=== PATIENT | female | born 1965 | race Caucasian/White ===

== ENCOUNTER 2019-06-05 12:33 | Emergency (ER) | payer MEDICAID ==
[~2019-06-05] VITALS: Ht 170.2 cm; Wt 131.8 kg
--- NOTE | 2019-06-05 13:39 | NUR ---
PT TO XRAY
[2019-06-05] MEDS ORDERED: ALBU8HFA PO (13:59)
[2019-06-05] MEDS ORDERED: LEVO750T21 PO (13:59)
[2019-06-05 14:08] VITALS: BP 126/80
== END 2019-06-05 14:28 | disposition home or self-care (01) ==
LOC: ER 12:34
DX: J18.9 Pneumonia, unspecified organism (principal); F17.200 Nicotine dependence, unspecified, uncomplicated; Z79.2 Long term (current) use of antibiotics
CPT/HCPCS: 71045; 99283

== ENCOUNTER 2019-06-11 12:59 | Emergency (ER) | payer MEDICAID ==
[~2019-06-11] VITALS: Ht 170.2 cm; Wt 143.0 kg
[~2019-06-11 12:59] MED LIST: ALBU8HFA PO; LEVO750T21 PO
[2019-06-11 13:08] VITALS: BP 145/86
--- NOTE | 2019-06-11 13:47 | NUR ---
PT AMBULATORY TO XRAY WITH UNDERWRITING SUPPORT SPECIALIST PER ORDERS NOW
[2019-06-11 13:50] LABS: BASOPHILS # (AUTO) 0.1 X10'3 (0-0.2); BASOPHILS % (AUTO) 0.8 % (0-1); EOSINOPHILS # (AUTO) 0.1 X10'3 (0-0.9); EOSINOPHILS % (AUTO) 1.3 % (0-6); LYMPHOCYTES # (AUTO) 3.4 X10'3 (1.1-4.8); LYMPHOCYTES % (AUTO) 35.1 % (21-51); MEAN CORPUSCULAR HEMOGLOBIN 25.1 PG (27.0-31.0); MEAN CORPUSCULAR HGB CONC 32.4 g/dL (33.0-36.5); MEAN CORPUSCULAR VOLUME 77.4 FL (78-98); MEAN PLATELET VOLUME 7.1 FL (7.4-10.4); MONOCYTES # (AUTO) 0.8 X10'3 (0-0.9); MONOCYTES % (AUTO) 8.2 % (2-12); NEUTROPHILS # (AUTO) 5.3 X10'3 (1.8-7.7); NEUTROPHILS % (AUTO) 54.6 % (42-75); PLATELET COUNT 353 X10'3 (140-440); RED BLOOD COUNT 5.16 X10'6 (4.20-5.60); RED CELL DISTRIBUTION WIDTH 16.1 % (11.5-14.5); WHITE BLOOD COUNT 9.7 X10'3 (4.5-11.0)
[2019-06-11] MEDS ORDERED: CODE10LI PO (13:54)
[2019-06-11] MEDS ORDERED: PRED20TA PO (14:01)
[2019-06-11 14:04] LABS: ALANINE AMINOTRANSFERASE 45 U/L (12-78); ALBUMIN 3.5 G/DL (3.4-5.0); ALBUMIN/GLOBULIN RATIO 0.9 (1.1-1.5); ALKALINE PHOSPHATASE 108 IU/L (46-116); ANION GAP 8 (8-16); ASPARTATE AMINO TRANSFERASE 42 U/L (10-37); BILIRUBIN,TOTAL 0.3 MG/DL (0.1-1.0); BLOOD UREA NITROGEN 34 MG/DL (7-18); BUN/CREATININE RATIO 30.1 (6.6-38.0); CALCIUM 9.1 MG/DL (8.5-10.1); CHLORIDE 106 MMOL/L (99-107); CREATININE 1.13 MG/DL (0.40-0.90); GLUCOSE 149 MG/DL (70-104); POTASSIUM 3.5 MMOL/L (3.5-5.1); SODIUM 142 MMOL/L (135-145); TOTAL CARBON DIOXIDE 27.6 MMOL/L (24-32); TOTAL PROTEIN 7.5 G/DL (6.4-8.2); eGFR 50 ML/MIN
== END 2019-06-11 14:25 | disposition home or self-care (01) ==
LOC: ER 13:00
DX: J06.9 Acute upper respiratory infection, unspecified (principal); J40 Bronchitis, not specified as acute or chronic; F17.200 Nicotine dependence, unspecified, uncomplicated; E66.01 Morbid (severe) obesity due to excess calories; Z68.42 Body mass index [BMI] 45.0-49.9, adult; Z60.2 Problems related to living alone; Z79.899 Other long term (current) drug therapy
CPT/HCPCS: 36415; 71046; 80053; 85025; 99284

== ENCOUNTER 2022-05-22 15:06 | Emergency (ER) | payer MEDICAID ==
[~2022-05-22] VITALS: Ht 170.2 cm; Wt 137.0 kg
[~2022-05-22 15:06] MED LIST changes: -ALBU8HFA PO; +CODE10LI PO; -LEVO750T21 PO
[2022-05-22 15:58] LABS: BASOPHILS % (AUTO) 0.8 % (0-1); EOSINOPHILS # (AUTO) 0.1 X10'3 (0-0.9); EOSINOPHILS % (AUTO) 1.6 % (0-6); HEMATOCRIT 41.2 % (35.0-45.0); HEMOGLOBIN 13.5 g/dl (12.0-16.0); LYMPHOCYTES # (AUTO) 1.6 X10'3 (1.1-4.8); LYMPHOCYTES % (AUTO) 29.5 % (21-51); MEAN CORPUSCULAR HEMOGLOBIN 27.6 PG (27.0-31.0); MEAN CORPUSCULAR HGB CONC 32.9 g/dL (33.0-36.5); MEAN CORPUSCULAR VOLUME 83.9 FL (78-98); MEAN PLATELET VOLUME 7.3 FL (7.4-10.4); MONOCYTES # (AUTO) 0.4 X10'3 (0-0.9); MONOCYTES % (AUTO) 7.4 % (2-12); NEUTROPHILS # (AUTO) 3.3 X10'3 (1.8-7.7); NEUTROPHILS % (AUTO) 60.7 % (42-75); PLATELET COUNT 223 X10'3 (140-440); RED CELL DISTRIBUTION WIDTH 15.4 % (11.5-14.5); WHITE BLOOD COUNT 5.5 X10'3 (4.5-11.0)
[2022-05-22 16:22] LABS: ALBUMIN 3.1 G/DL (3.4-5.0); ANION GAP 10 (8-16); BLOOD UREA NITROGEN 17 MG/DL (7-18); BUN/CREATININE RATIO 14.3 (6.6-38.0); CALCIUM 8.2 MG/DL (8.5-10.1); CHLORIDE 105 MMOL/L (99-107); CREATININE 1.19 MG/DL (0.40-0.90); GLUCOSE 143 MG/DL (70-104); POTASSIUM 3.7 MMOL/L (3.5-5.1); SODIUM 138 MMOL/L (135-145); TOTAL CARBON DIOXIDE 23.4 MMOL/L (24-32); eGFR 47 ML/MIN
[2022-05-22 16:38] VITALS: BP 163/103
[2022-05-22] MEDS ORDERED: furosemide 20MG tablet PO ONE (16:40)
== END 2022-05-22 17:50 | disposition home or self-care (01) ==
LOC: ER 15:07
DX: I50.9 Heart failure, unspecified (principal); Z20.822 Contact with and (suspected) exposure to COVID-19; J02.9 Acute pharyngitis, unspecified; R05.9 Cough, unspecified; R09.81 Nasal congestion; R53.83 Other fatigue; Z60.2 Problems related to living alone; Z79.899 Other long term (current) drug therapy
CPT/HCPCS: 36415; 71045; 80048; 83880; 84484; 85025; 87502; 87503; 87635; 93005; 99285; C9803

== ENCOUNTER 2025-04-09 05:56 | Day surgery (SDC) | payer BC ==
[~2025-04-09] VITALS: Ht 170.2 cm; Wt 119.3 kg
[2025-04-09] VITALS (11 sets, daily range): BP systolic 113–146; BP diastolic 61–99; PULSE 68–90; RESP 13–24; O2SAT 90–94
[~2025-04-09 05:56] MED LIST changes: -CODE10LI PO; +CODE10LI2 PO
--- NOTE | 2025-04-09 06:36 | ELECTROCARDIOGRAPH REPORT ---
[facility] Test Date: 2025-04-09 Test Time: 06:30:34 Pat Name: JAYJAY LOUISE Department: [facility] Patient ID: [id number] Room: Gender: F Research [employer] Development Chemist: MARCELINO : 1965 Requested By: JOSE ESCOBEDO Order Number: [id number] Reading MD: Dr. DI Escobedo Measurements Intervals [place] Rate: 74 P: 13 MS: 171 QRS: 105 QRSD: 105 T: -59 QT: 423 QTc: 470 Interpretive Statements Sinus arrhythmia Left atrial enlargement Posterior infarct, acute (LCx) Electronically Signed On 04-09-2025 17:22:[address] DI Escobedo Please click the below link to view image of tracing.
[2025-04-09] MEDS ORDERED: SILD20TA42 PO (06:43)
[2025-04-09] MEDS ORDERED: DILT-36 PO (06:43)
[2025-04-09] MEDS ORDERED: FURO-150 PO (06:46)
[2025-04-09] MEDS ORDERED: BUPR-114 PO (06:46)
[2025-04-09] MEDS ORDERED: MELA10CA11 PO (06:49)
[2025-04-09] MEDS ORDERED: LOSA50TA64 PO (06:49)
[2025-04-09 07:12] LABS: MEAN PLATELET VOLUME 7.5 FL (7.4-10.4); RED CELL DISTRIBUTION WIDTH 15.0 % (11.5-14.5)
[2025-04-09 07:22] LABS: CREATININE 1.18 MG/DL (0.40-0.90); TOTAL CARBON DIOXIDE 22.7 MMOL/L (24-32); eCRCL 50 ML/MIN; eGFR 47 ML/MIN
[2025-04-09 07:23] LABS: APTT 27 SECONDS (22-32); INR 1.1 INR
[2025-04-09] MEDS ORDERED: verapamil 2.5 mg/ml inj IV ONE (07:56)
[2025-04-09] MEDS ORDERED: heparin 1,000unit/ml 10ml vial 10 ML ONE (07:56)
[2025-04-09] MEDS ORDERED: midazolam 1 mg/ML 2ml injection ONE (07:56)
[2025-04-09] MEDS ORDERED: iohexol 350 MG/ML 50ML vial IV ONE (07:56)
[2025-04-09] MEDS ORDERED: LIDOcaine 1% (10mg/ml) 2ml vial ONE (07:56)
[2025-04-09] MEDS ORDERED: fentaNYL/PF 50MCG/1 ML 2ML syringe ONE (07:56)
[2025-04-09] MEDS ORDERED: nitroGLYCERIN 500mcg/5mL D5W 5 ML IV ONE (08:00)
[2025-04-09] MEDS: sodium bicarbonate 1meq/ml inj 150 ML in dextrose 5%-water 1,000 ML IV SCH (08:30)
[2025-04-09] MEDS: acetylcysteine sol. 200 MG/ML 4ml vial PO SCH (08:32)
[2025-04-09 09:43] LABS: ISTAT HGB ART 12.6 g/dl (12.0-16.0); ISTAT Hct ART 37 %PCV (35-45); ISTAT O2 SATURATION ARTERIAL 84 % (95-98); ISTAT SOURCE ART
[2025-04-09] MEDS ORDERED: normal saline 1000ml 1,000 ML IV SCH (10:00)
--- NOTE | 2025-04-09 10:22 | CARDIOLOGY REPORT ---
DATE OF SERVICE: 04/09/2025 DICTATING PHYSICIAN: DI Beatty MD DATE OF PROCEDURE: 04/09/2025 GENDER: Female AGE: 60 years HEIGHT: 170 cm WEIGHT: 119 kg BODY SURFACE AREA: 2.28 msq. PRIMARY PHYSICIAN: Dr. Gerardo Chow. LOGISTICAL ENGINEER: Dr. Carpenter in [place]. TEA BLENDER: Dr. Beatty INDICATION: The patient is a 60-year-old postmenopausal obese female with chronic history of smoking until about a year ago, hypertension, exertional fatigue, shortness of breath, mitral and tricuspid regurgitation. Echocardiogram from [facility] on 01/24/2025 showed EF of 55%-60%, moderate LVH. RV is markedly dilated with severe systolic dysfunction of the right ventricle with a PA systolic pressure of 105 mmHg. The patient was seen in the office after an EKG showed ST depression in the precordial leads. The patient has exertional fatigue, shortness of breath episodes, chest pain in the office. Given the present symptoms and risk factors and severe pulmonary hypertension, it was decided to proceed with a coronary angiography. Risks, benefits, and alternative options were discussed and informed consent was obtained. PROCEDURE TECHNIQUE: The patient underwent left heart catheterization with right radial artery approach with 6-Arabic right radial arterial sheath. Post procedure access site hemostasis secured with right radial band. Right heart catheterization from right antecubital approach, 6-Arabic sheath, posterior access site, hemostasis achieved with compression. PROCEDURES DONE: * Ultrasound-guided right radial artery visualization and access. * Right heart catheterization. * Left heart catheterization. * LVG. * Coronary cineangiography. * Conscious sedation for 30 minutes. COMPLICATIONS: None. FINDINGS: HEMODYNAMICS: Aortic systolic 88, diastolic 56, mean 71 mmHg. LVEDP of 17 mmHg. No significant gradient across the aortic valve. Right atrial mean 13 mmHg, RV 91/16 mmHg, PA 83/25 mmHg, pulmonary capillary wedge pressure of 1 mmHg. Aortic oxygen saturation 84%, pulmonary artery oxygen 54%. Cardiac output with thermodilution method is 5.32 L/min. Cardiac index was 2.34 L/min/msq. LEFT VENTRICULOGRAM: Overall left ventricular systolic function is normal with LV ejection fraction 70%. CORONARY CINEANGIOGRAPHY: Left main coronary artery is a large caliber vessel arising from the left aortic sinus with no significant disease. LAD is a medium caliber vessel arising at the bifurcation of main coronary artery close to the anterior intraventricular groove and ends at the apex. Mild luminal irregularities. Diagonal is 2.5 mm caliber with mild luminal irregularities. Circumflex, nondominant, medium caliber with mild luminal irregularities. OM1 is tiny. OM2 is about 2.25 mm and is tortuous with mild luminal irregularities. Right coronary artery is a large caliber dominant vessel arising from right aortic sinus, goes through the right AV groove and into the posterior crest by aortic PDA and a posterolateral branch. Proximal artery is mildly ectatic. Otherwise, areas of 10%-20% narrowing. IMPRESSION: * A 60-year-old female with LV ejection fraction of 70%. * Left ventricular end diastolic pressure of 13 mmHg with no gradient across the aortic valve and severe pulmonary hypertension, 105 systolic by echo. Cardiac catheterization RV systolic was 91 mmHg. * Pulmonary capillary wedge pressure was 1 mmHg. * Left main normal. * Left anterior descending artery, diagonal with minimal disease. * Circumflex marginal with minimal disease. * Right coronary artery with areas of 10%-20% narrowing. RECOMMENDATIONS: * Continued aggressive coronary risk factor modification. * The patient has already on an upcoming appointment with Dr. Carpenter, fork assembler in [place]. * The patient is already on a calcium channel jose and sildenafil. * The patient may need further higher therapies like IV prostacycline. DI Beatty MD TID: [id number] RECEIPT: [id number] /SUM cc: Mayur Carpenter MD [facility]
[2025-04-09 11:23] LABS: ISTAT HGB MIX 12.2 g/dl (12.0-16.0); ISTAT Hct MIX 36 %PCV (35-45); ISTAT O2 SATURATION MIX VENOUS 54 % (60-80); ISTAT SOURCE VEN
== END 2025-04-09 15:05 | disposition home or self-care (01) ==
LOC: SSTAY O 05:56
PROVIDERS: ATTEND Internal Medicine Cardiovascular Disease
DX: I25.10 Atherosclerotic heart disease of native coronary artery without angina pectoris (principal); I08.1 Rheumatic disorders of both mitral and tricuspid valves; I11.0 Hypertensive heart disease with heart failure; I50.32 Chronic diastolic (congestive) heart failure; E66.9 Obesity, unspecified; I49.8 Other specified cardiac arrhythmias; Z78.0 Asymptomatic menopausal state; Z87.891 Personal history of nicotine dependence; Z98.890 Other specified postprocedural states; Z90.722 Acquired absence of ovaries, bilateral
CPT/HCPCS: 36415; 80048; 82803; 85014; 85025; 85610; 85730; 93005; 93460; 99152; 99153; J1200; J1644; J2003; J2250; J3010; J3490; J7030; J7070; Q0163; Q9967; 76937; A4615; A6258; A6402; A6449; C1725; C1751; C1894